=== PATIENT | male | born 1975 | race Caucasian/White ===

== ENCOUNTER → 2024-06-13 | Outpatient (CLI) | payer OTHER ==
--- NOTE | 2024-06-13 11:32 | FL ---
EXAMINATION TYPE: FL UGI w small bowel DATE OF EXAM: 06/13/2024 11:21 AM COMPARISON: CLINICAL INDICATION:Male, 49 years old with history of R11.0 nausea; TECHNIQUE: The procedure was explained and patient history elicited. All patient questions were ans wered prior to start of procedure. A boning room worker radiograph of the abdomen was also reviewed. Multiple flu oroscopic spot images of the esophagus, stomach and duodenum were obtained following ingestion of liq uid barium and EZ-gas crystals. After the completion of the upper gastrointestinal examination, a de tailed small bowel examination was performed. The patient was asked to ingest additional liquid darwin um and incremental frontal abdominal radiographs were then taken until contrast was visualized in the cecum. Fluoroscopic time: sec Fluoroscopic images:0 Radiographs taken: DAP: NOT REPORTED [id number] FINDINGS: Upper GI examination: The boning room worker abdominal radiograph demonstrates a normal bowel gas pattern without dilated loops of small or large bowel. There is no evidence for organomegaly or pneumoperitoneum. No abnormal calcificati ons. The visualized osseous structures are intact. The esophagus appears unremarkable without evidence of focal stricture, ulceration or abnormal outpou yosef. Few scattered tertiary contractions with delayed emptying of the esophagus No hiatal hernia was visualized. No evidence of gastroesophageal reflux was seen. The stomach and duodenum demonstrat e a normal course and contour. There is no evidence of focal gastric or duodenal ulceration, strictu re, or abnormal outpouching. Small bowel mucosal folds are felt to be within normal limits. Detailed small bowel examination: Contrast is seen extending from the duodenojejunal junction into the cecum after two hours, which is within the expected time period. The small bowel follows normal distribution and contour without any evidence of extraluminal or intraluminal irregularity. There is no displacement of bowel loops or e xtraluminal extravasation of contrast material. IMPRESSION: 1. [id number] Esophageal dysmotility. 2. Normal detailed small bowel examination. [facility], , 06/13/2024 11:23 AM
== END | disposition home or self-care (01) ==
LOC: RADFLMAIN 09:21
PROVIDERS: ATTEND Internal Medicine Gastroenterology
DX: R11.0 Nausea (principal); K22.4 Dyskinesia of esophagus
CPT/HCPCS: 74240; 74248